=== PATIENT | female | born 2005 | race Caucasian/White ===

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

== ENCOUNTER 2024-05-09 15:44 | Emergency (ER) | payer OTHER, SELFPAY ==
--- NOTE | 2024-05-09 16:02 | ED.GENADULT ---
HPI - General Adult General Chief complaint: General Medical Stated complaint: Preg test Time Seen by Provider: 05/09/24 17:07 Source: patient Mode of arrival: ambulatory Limitations: no limitations History of Present Illness ED Provider: Grace Bhatia PA-C HPI narrative: 19-year-old female with no medical history presents the ER for evaluation after she was 1 week late for her period. She took 2 digital home test that were positive. She presents here for a confirmation test. She denies any symptoms of . She denies any vaginal bleeding or discharge. No nausea, abdominal pain. She has never been before MD complaint: Positive test Relieving factors: none Exacerbating factors: none Associated symptoms: denies other symptoms Treatments prior to arrival: none Related Data Allergies Allergy/AdvReac Type Severity Reaction Status Date / Time No Known Allergies Allergy Verified 05/09/24 16:05 Review of Systems Review of Systems: Yes all other systems are reviewed and are negative PMFSH Social History Social History Advance Directives: No Advance Directives Information Provided: Yes Do you have a plan to hurt others: No Plan Physical Exam ED Vital Signs: Vital Signs - 24 hr 05/09/24 16:03 05/09/24 17:16 Temperature 98.3 F 98.3 F Pulse Rate 74 74 Respiratory Rate 18 18 Blood Pressure 105/63 105/63 Pulse Oximetry 100 100 Oxygen Delivery Method Room Air Room Air BMI result Body Mass Index 29.1 Appearance: Alert. Oriented X3. No acute distress. HEENT: normal inspection Chest: Normal inspection, equal rise and fall of the chest Respiratory: No respiratory distress. Speaking in complete sentences Skin: Skin warm and dry. Normal skin color. Normal skin turgor. No rashes. Extremities: Normal inspection, no joint swelling Neuro: Oriented X 3. Grossly normal, nonfocal Course Course Course Narrative: This is a Rapid Medical Examination (RME) performed by Grace Bhatia PA-C in triage. Full HPI, ROS, assessment and treatment plan per primary provider in the Main ED. 19 yo female presenting to the ER for evaluation of possible after she is 1 week late for her period. she did 2 tests at home that were positive. LMP 10/12. no vaginal bleeding urinary symptoms. Plan: upreg and UA Medical Decision Making Medical Decision Making MDM Narrative: 19-year-old female presents to the ER for evaluation after she had a positive test at home in the setting of being late for her menstrual cycle by 1 week. LMP 04/01 Patient's urine test is positive for . Negative for infection. Patient counseled on diagnosis of , advised starting vitamins and to follow-up with an OBGYN. Stable for discharge with outpatient follow-up. Return precautions were discussed Differential Diagnosis Differential Diagnoses: The differential diagnosis associated with the presentation includes Early stage of , irregular menstrual cycle Lab Data [facility] Lab Attestation statement: I reviewed the patient's lab results. Labs: Lab Results 05/09/24 Range/Units 16:51 Urine Color Yellow Urine Appearance Clear Urine pH 6.5 (5.0-9.0) Ur Specific [place] 1.020 (1.005-1.025) Urine Protein Negative (Neg-Trace) mg/dL Urine Glucose (UA) Negative (Negative) mg/dL Urine Ketones Negative (Negative) mg/dL Urine Blood Negative (Negative) Urine Nitrite Negative (Negative) Ur Leukocyte Esterase Negative (Negative) Urine Test POSITIVE H (NEGATIVE) Prescription Management I considered prescription management with: Other ( vitamin) Critical Care Time Critical Care Time Critical Care Time: No Discharge Plan Discharge Clinical Impression: Qualifiers: Weeks of gestation: less than 8 weeks Qualified Code(s): Z3A.01 - Less than 8 weeks gestation of Patient Disposition: Home, Self-Care Instructions: (ED), at 7 to 10 Weeks (ED) Additional Instructions: you tested positive for today recommend starting a pre- vitamin follow up with an [employer]PER[employer]OR If you develop and severe abdominal pain, vaginal bleeding or any other concerning symptoms call 911 or come back to the ER for further evaluation. Referrals: Corrina Mosquera MD [Primary Care Provider] - Chris Tierney MD [Physician] - Interventions: ED Discharge Assessment Last Done: 05/09/24 17:16 Discharge Date/Time: 05/09/24 17:27 Print Language: Barb[place]
[2024-05-09 16:03] VITALS: BP 105/63; PULSE 74; RESP 18; TEMP 36.8; O2SAT 100; BMI 29.1
[2024-05-09 16:58] LABS: Appearance Urine Clear; Color Urine Yellow; Glucose Urine UA Negative (Negative); Nitrite Urine Negative (Negative); PH 6.5 (5.0-9.0); Urine Blood Negative (Negative); Urine Ketones Negative (Negative); Urine Protein Negative (Neg-Trace)
[2024-05-09 16:59] LABS: Leukocyte Esterase Urine Negative (Negative); UPreg QC Valid YES; Urine Pregnancy POSITIVE (NEGATIVE)
[2024-05-09 17:16] VITALS: BP 105/63; PULSE 74; RESP 18; TEMP 36.8; O2SAT 100
== END 2024-05-09 17:27 | disposition home or self-care (01) ==
LOC: HO.ED 17:24
PROVIDERS: Physician Assistant; Emergency Provider Emergency Medicine Emergency Medical Services; PCP Pediatrics
DX: Z32.01 Encounter for pregnancy test, result positive (principal)
CPT/HCPCS: 81003; 81025; 99282